=== PATIENT | female | born 1985 | race Two or more races ===

== ENCOUNTER 2020-07-22 20:45 | Emergency (ER) | payer SELFPAY ==
[~2020-07-22] VITALS: Ht 165.1 cm; Wt 80.0 kg
[~2020-07-22 20:45] MED LIST: IBUP-1222 PO; OXYC-302 PO
--- NOTE | 2020-07-22 21:05 | NUR ---
PROVIDER AT BEDSIDE
--- NOTE | 2020-07-22 21:22 | NUR ---
PT COMES IN TODAY FOR OVERTON, CONFUSION, NAUSEA FOLLOWING A GLF THIS MORNING. PT IS ACCOMPANIED BY ROOMATE WHO STATES PT WAS IN HER ROOM TALKING ON THE PHONE AND SUDDENLY STARTED TO SCREAM STATING SHE COULD NOT FEEL HER ARMS/LEGS. PT STATES SHE WAS "OUT DRINKING LAST NIGHT BUT DOESNT REMEMBER MUCH AFTER THAT". PTS ROOMMATE STATES SHE HEARD THE PT. FALL THIS MORNING AND FOUND THE PT UNCONSCIOUS IN THE BATHROOM. MONITORS CONNECTED. PLAN OF CARE DISCUSSED
[2020-07-22] MEDS ORDERED: ONDANSETRON 2MG/ML, 2ML ONE (21:29)
[2020-07-22] MEDS ORDERED: ONDANSETRON 2MG/ML, 2ML IVPush ONE (21:30)
[2020-07-22] MEDS ORDERED: LORazepam 2 MG/ML, 1ML IVPush ONE (21:30)
[2020-07-22] MEDS ORDERED: SODIUM CHLORIDE 0.9% 1,000ML IVBOLUS ONE (21:30)
[2020-07-22] MEDS ORDERED: LORazepam 2 MG/ML, 1ML ONE (21:30)
[2020-07-22] MEDS ORDERED: SODIUM CHLORIDE FLUSH 10ML SYR IVF ONE (21:30)
[2020-07-22 21:39] LABS: BASOPHILS % (AUTO) 1 % (0-1); EOSINOPHILS % (AUTO) 0 % (1-7); LYMPHOCYTES % (AUTO) 21 % (22-44); MEAN CORPUSCULAR HEMOGLOBIN 28.2 pg (27.0-34.8); MEAN CORPUSCULAR HGB CONC 34.5 g/dL (32.4-35.8); MEAN PLATELET VOLUME 8.3 fL (7.4-10.4); MONOCYTES % (AUTO) 5 % (2-9); NEUTROPHILS % (AUTO) 73 % (42-75); PLATELET COUNT 321 x10^3/uL (130-400); RED BLOOD COUNT 5.17 x10^6/uL (3.82-5.3); RED CELL DISTRIBUTION WIDTH 14.6 % (9.6-15.2)
[2020-07-22 21:40] LABS: MD NO
[2020-07-22 21:48] LABS: ALANINE AMINOTRANSFERASE 86 U/L (12-78); ALBUMIN 4.5 g/dL (3.4-5.0); ANION GAP 9 mmol/L (5-15); CALCIUM 9.4 mg/dL (8.5-10.1); CHLORIDE 109 mmol/L (98-107); CREATININE 0.88 mg/dL (0.55-1.02)
[2020-07-22 21:52] LABS: ALKALINE PHOSPHATASE 73 U/L (45-117); BILIRUBIN,TOTAL 0.6 mg/dL (0.2-1.0); TOTAL PROTEIN 8.6 g/dL (6.4-8.2)
--- NOTE | 2020-07-22 21:55 | NUR ---
RECEIVED REPORT FROM SAKSHI BEASLEY.
--- NOTE | 2020-07-22 21:56 | NUR ---
REPORT GIVEN TO MOI
--- NOTE | 2020-07-22 21:57 | NUR ---
PER PROVIDER, CT NOT CANCELLED. PROCUREMENT PROFESSIONAL CANCELLED ACCIDENTALLY. STATES SHE WILL REORDER
[2020-07-22 22:04] LABS: MICROSCOPIC INDICATED
--- NOTE | 2020-07-22 22:06 | NUR ---
PT TRANSPORTED TO CT.
[2020-07-22 22:12] LABS: AMPHETAMINE SCREEN, URINE Positive (Negative); BARBITURATE SCREEN, URINE Negative (Negative); BENZODIAZEPINE SCREEN, URINE Negative (Negative); CANNABINOID SCREEN, URINE Negative (Negative); COCAINE SCREEN, URINE Positive (Negative); METHADONE SCREEN, URINE Negative (Negative); OPIATE SCREEN, URINE Negative (Negative)
[2020-07-22 23:04] VITALS: BP 122/67
--- NOTE | 2020-07-22 23:12 | NUR ---
REPORT TO PAULINO BEASLEY.
--- NOTE | 2020-07-22 23:49 | NUR ---
Patient given discharge instructions and they have confirmed that they understand the instructions. Patient ambulatory with steady gait.
== END 2020-07-23 23:52 | disposition home or self-care (01) ==
LOC: ED 23:00
DX: N30.00 Acute cystitis without hematuria (principal); R11.2 Nausea with vomiting, unspecified; R20.2 Paresthesia of skin; F15.129 Other stimulant abuse with intoxication, unspecified; G44.309 Post-traumatic headache, unspecified, not intractable; F41.1 Generalized anxiety disorder; F14.129 Cocaine abuse with intoxication, unspecified; R94.31 Abnormal electrocardiogram [ECG] [EKG]
CPT/HCPCS: 36415; 70450; 80053; 80307; 81001; 84703; 85025; 87077; 87086; 93005; 96361; 96374; 96375; 99285; J2060; J2405; J7030; 87186